=== PATIENT | male | born 1970 | race Caucasian/White ===

== ENCOUNTER 2017-05-14 12:34 | Emergency (ER) | payer OTHER ==
[2017-05-14 12:42] VITALS: RESP 16; TEMP 98.2
--- NOTE | 2017-05-14 12:57 | EDPHY ---
H & P Stated Complaint: Sent from dr's office for eval poss withdrawal vs neuro vs psych Time Seen by Provider: 05/14/17 12:55 HPI/ROS: CHIEF COMPLAINT: Change in mental status HISTORY OF PRESENT ILLNESS: The patient is a 47 y/o male with a history of rapid cycling bipolar disorder, back injuries, and a possible TIA in March sent by his doctor for a change in mental status. He has been taking hydroxyzine , three times daily and weening off of diazepam, for his bipolar disorder. He had been using Benedict for his back pain but recently his prescription ran out. As a result, he increased his diazepam over the past two days. He was seen by his PCP (Dr. German) on 05/05/17 for a follow up for an MRI in March for a TIA. Today, he returned to his PCP for a change in mental status. His reports he was at baseline this morning, and he went to see his psychiatrist who evidently was unable to see him. This resulted in him being upset. He then went to see his PCP. The PCP reports that he was walking into [place], confused, slow to speak, and has a questionable, intermittent left eyelid droop. His PCP is concerned about a possible stroke, TIA, withdrawal, or overmedication. The patient reports difficulty word finding, weakness in both arms, left worse than right, and confusion. He has an associated feeling that his lower body is separate from his upper body. He denies headache, or other associated symptoms. On further questioning the patient has increased his diazepam from 2.5 mg twice daily to 5 mg twice daily for his back pain as well as he took 10 mg last night. He reports he did this because he ran out of his hydrocodone. He states that his back has been unusually painful over the last several days related to several long plane trips which he needed to take. He also reports that he has been upset regarding of his father recently. Patient and his deny fever, chills, chest pain, shortness of breath, palpitations, vomiting, diarrhea, urinary complaints, headache, lightheadedness. REVIEW OF SYSTEMS: Aside from elements discussed in the HPI, a comprehensive 10-point review of systems was reviewed and is negative. PAST MEDICAL HISTORY: Bipolar disorder, back injuries, TIA SOCIAL HISTORY: Lives in [place], , employed VITAL SIGNS Reviewed by me. GENERAL: Slow to answer questions, very difficult historian. HEENT: Atraumatic. Eyes: No icterus, no injection. Mouth: moist mucous membranes. No erythema or lesions. Neck: supple with no adenopathy. LUNGS: Clear to auscultation bilaterally, no wheezes, rhonchi or rales. CARDIAC: Regular rate and rhythm, no rubs, murmurs or gallops. ABDOMEN: Soft, nontender, nondistended, bowel sounds normal. BACK: No CVA tenderness. EXTREMITIES: No trauma. No edema. Range of motion is normal throughout. NEURO: Alert and oriented, grossly nonfocal. Diminished welfare worker strength bilaterally and diminished lower extremity strength bilaterally though query volitional effort. [id number] and normal although slow. SKIN: Warm and dry, no rash. PSYCHIATRIC: Normal mentation, no agitation. - Personal History Current Tetanus Diphtheria and Acellular Pertussis (TDAP): Yes - Medical/Surgical History Other PMH: Bipolar. chronic back pain. depression. myalgias. scarlet fever - Social History Smoking Status: Never smoked Constitutional: Initial Vital Signs Temperature (C) 36.8 C 05/14/17 12:35 Heart Rate 85 05/14/17 12:35 Respiratory Rate 16 05/14/17 12:35 Blood Pressure 128/87 H 05/14/17 12:35 O2 Sat (%) 97 05/14/17 12:35 O2 Delivery Mode Room Air Allergies/Adverse Reactions: No Known Allergies Allergy (Verified 05/14/17 12:34) Home Medications: Medication Instructions Recorded Diazepam [Valium 5 MG (*)] 5 mg PO 05/14/17 Escitalopram Oxalate [Lexapro] 10 mg PO 05/14/17 Hydrocodone/APAP 5/325 [Benedict 1 each PO 05/14/17 5/325 (*)] Hydrocodone/APAP 5/325 [Benedict 1 tab PO Q6H PRN #10 tab 05/14/17 5/325 (RX)] OXcarbazepine [Trileptal 300mg (*)] 300 mg PO 05/14/17 QUEtiapine FUMARATE [Seroquel 100 100 mg PO DAILY 05/14/17 mg (*)] hydrOXYzine HCL [hydrOXYzine HCL 25 mg PO 05/14/17 (RX)] lamoTRIgine [LamICTAL 100 MG (*)] 200 mg PO 05/14/17 Medical Decision Making - Diagnostics EKG Interpretation: 12-LEAD EKG: Please see the full report in [facility]. My interpretation: Sinus rhythm Imaging Results: Imaging Impressions Brain MRI 05/14/17 14:02 Impression: Normal MRI examination of the brain.. Results called to Dr. Litzy Magallon at 3:25 PM. ED Course/Re-evaluation: The patient presents with altered mental status after discontinuing Benedict and increasing diazepam. He saw his PCP today and was noted to be confused, walking into [place], and had a questionable droop of the left eyelid. He was directed here for evaluation for a TIA, stroke, withdrawal, or overmedication. On exam, he is slow to speak, confused when answering questions, and has bilateral welfare worker and lower body weakness, though I question his volitional effort. Plan for fluids, Toradol, brain MRI, CBC, basic metabolic panel, troponin, lipase. 3:27 PM- MRI is normal. Patient's laboratory evaluation is largely unremarkable. There is no evidence of electrolyte abnormalities or cardiac cause. On re-examination after patient's evaluation has been completed patient reports feeling improved. Indeed, his mentation seems to to have improved, he is answering questions much more appropriately and rapidly. His main complaint currently is of ongoing back pain. I discussed with the patient at length my concerns regarding his chronic opiate use for treatment of his back pain. I advised him that he will need follow up with Dr. German regarding ongoing medications within Benedict for back pain. I did provide him with a Benedict prescription for 10 tablets. We also discussed importance of ibuprofen as, topical medications including lidocaine patch, ice, and topical creams. Patient is comfortable being discharged with his . Differential Diagnosis: After the history was obtained and physical exam performed, the following differential for the patient's altered mental status was considered included but was not limited to hypoglycemia, electrolyte disturbances, intracranial hemorrhage, tumor, drug or alcohol intoxication, stroke, or TIA. - Data Points Laboratory Results: Laboratory Results 05/14/17 13:25 05/14/17 13:25 05/14/17 05/14/17 13:25 13:25 WBC 7.34 10^3/uL 10^3/uL (3.80-9.50) RBC 4.47 10^6/uL 10^6/uL (4.40-6.38) Hgb 13.3 g/dL L g/dL (13.7-17.5) Hct 38.8 % L % (40.0-51.0) MCV 86.8 fL fL (81.5-99.8) MCH 29.8 pg pg (27.9-34.1) MCHC 34.3 g/dL g/dL (32.4-36.7) RDW 13.1 % % (11.5-15.2) Plt Count 306 10^3/uL 10^3/uL (150-400) MPV 8.9 fL fL (8.7-11.7) Neut % (Auto) 76.7 % H % (39.3-74.2) Lymph % (Auto) 16.5 % % (15.0-45.0) [place] % (Auto) 5.7 % % (4.5-13.0) Eos % (Auto) 0.4 % L % (0.6-7.6) Baso % (Auto) 0.3 % % (0.3-1.7) Nucleat RBC Rel Count 0.0 % % (0.0-0.2) Absolute Neuts (auto) 5.63 10^3/uL 10^3/uL (1.70-6.50) Absolute Lymphs (auto) 1.21 10^3/uL 10^3/uL (1.00-3.00) Absolute Monos (auto) 0.42 10^3/uL 10^3/uL (0.30-0.80) Absolute Eos (auto) 0.03 10^3/uL 10^3/uL (0.03-0.40) Absolute Basos (auto) 0.02 10^3/uL 10^3/uL (0.02-0.10) Absolute Nucleated RBC 0.00 10^3/uL 10^3/uL (0-0.01) Immature Gran % 0.4 % % (0.0-1.1) Immature Gran # 0.03 10^3/uL 10^3/uL (0.00-0.10) Sodium 135 mEq/L mEq/L (135-145) Potassium 4.8 mEq/L mEq/L (3.5-5.2) Chloride 98 mEq/L mEq/L (97-110) Carbon Dioxide 26 mEq/l mEq/l (22-31) Anion Gap 11 mEq/L mEq/L (8-16) BUN 17 mg/dL mg/dL (7-23) Creatinine 0.8 mg/dL mg/dL (0.7-1.3) Estimated GFR > 60 Glucose 83 mg/dL mg/dL (70-100) Calcium 9.2 mg/dL mg/dL (8.5-10.4) Total Bilirubin 0.3 mg/dL mg/dL (0.1-1.4) Conjugated Bilirubin 0.3 mg/dL mg/dL (0.0-0.5) Unconjugated Bilirubin 0.0 mg/dL mg/dL (0.0-1.1) AST 32 IU/L IU/L (17-59) ALT 39 IU/L IU/L (21-72) Alkaline Phosphatase 77 IU/L IU/L (38-126) Creatine Kinase 152 IU/L IU/L (0-224) Troponin I < 0.012 ng/mL ng/mL (0.000-0.034) Total Protein 7.4 g/dL g/dL (6.3-8.2) Albumin 4.7 g/dL g/dL (3.5-5.0) Lipase 115 IU/L IU/L (23-300) Medications Given: Discontinued Medications Sodium Chloride (Ns) 1,000 mls @ 0 mls/hr IV ONCE ONE; Wide Open PRN Reason: Protocol Stop: 05/14/17 15:40 Last Admin: 05/14/17 15:44 Dose: 1,000 mls Ketorolac Tromethamine (Toradol) 30 mg IVP EDNOW ONE Stop: 05/14/17 15:40 Last Admin: 05/14/17 15:44 Dose: 30 mg Departure - Departure Disposition: Home, Routine, Self-Care Clinical Impression: Over-sedated Altered mental status, unspecified Qualifiers: Altered mental status type: transient alteration of awareness Qualified Code(s) : R40.4 - Transient alteration of awareness Back pain Qualifiers: Back pain location: low back pain Chronicity: chronic Back pain laterality: left Sciatica presence: without sciatica Qualified Code(s): M54.5 - Low back pain; G89.29 - Other chronic pain; G89.29 - Other chronic pain Condition: Good Instructions: Diazepam (By mouth), Chronic Back Pain (ED), Lower Back Exercises (ED) Additional Instructions: I believe the majority of your confusion has been the result of over medication with Valium (diazepam.) Please stay well hydrated, take your medications only as directed, and follow up with Dr. German. For your back pain, you may take hydrocodone only as a very last treatment for back pain. You may take Valium 2.5 mg 2 times a day for muscle spasm. Do not exceed this dose. Consider using an ice pack, lidocaine patch, or other topical medications for your back pain. I encourage you to seek alternative therapies other than hydrocodone for your back pain. Referrals: Magda German MD [Primary Care Provider] - As per Instructions Prescriptions: Hydrocodone/APAP 5/325 [Benedict 5/325 (RX)] 1 tab PO Q6H PRN #10 tab PRN Reason: Pain Report Scribed for: Litzy Magallon Report Scribed by: Kelley Medellin Date of Report: 05/14/17 Time of Report: 15:37 Physician Review and Approval Statement: 05/14/17 15:37 Portions of this note were transcribed by a medical malpractice paralegal. I, Dr Litzy Magallon , personally performed a history, physical exam, medical decision making, and confirmed the accuracy of the information in the transcribed note.
--- NOTE | 2017-05-14 13:32 | CPEKG ---
Heart Rate: 75 RR Interval: 800 P-R Interval: 168 QRSD Interval: 102 QT Interval: 384 QTC Interval: 429 P [place]: 67 QRS [place]: 77 T Wave [place]: 40 EKG Severity - BORDERLINE ECG - EKG Impression: SINUS RHYTHM EKG Impression: PROBABLE LEFT ATRIAL ABNORMALITY Electronically Signed By: Randall Red 19-May-2017 14:51:34
[2017-05-14 14:49] LABS: PLATELET COUNT 306 10^3/uL (150-400)
[2017-05-14] MEDS ORDERED: GADOBUTROL 10 ML VIAL IVP ONE (14:52)
[2017-05-14 15:02] LABS: CREATINE KINASE 152 IU/L (0-224)
[2017-05-14 15:31] VITALS: O2SAT 96
[2017-05-14] MEDS ORDERED: NS 1,000 ML IV ONE (15:39)
[2017-05-14] MEDS ORDERED: KETOROLAC 30 MG/1 ML SDV IVP ONE (15:39)
[2017-05-14 16:30] VITALS: BP 124/88; PULSE 78
== END 2017-05-14 16:30 | disposition home or self-care (01) ==
DX: R40.4 Transient alteration of awareness (principal); M54.5 Low back pain; G89.29 Other chronic pain; E86.9 Volume depletion, unspecified; T42.4X5A Adverse effect of benzodiazepines, initial encounter
CPT/HCPCS: 96374; A9585; J1885

== ENCOUNTER → 2017-06-26 | Outpatient (CLI) | payer OTHER | LOC: FIMAGING 15:45 | PROVIDERS: ATTEND Family Medicine | DX: Z12.2 Encounter for screening for malignant neoplasm of respiratory organs (principal); Z77.090 Contact with and (suspected) exposure to asbestos; Z80.1 Family history of malignant neoplasm of trachea, bronchus and lung ==

== ENCOUNTER 2017-07-01 11:48 | Inpatient (IN) | payer OTHER ==
[2017-07-01] MEDS ORDERED: AZITHROMYCIN IV 500 MG in D5W 250 ML IV SCH (12:00)
[2017-07-01] MEDS ORDERED: NS 2,300 ML IV ONE (12:09)
--- NOTE | 2017-07-01 12:13 | EDPHY ---
H & P Time Seen by Provider: 07/01/17 11:50 HPI/ROS: CHIEF COMPLAINT: Pneumonia HISTORY OF PRESENT ILLNESS: Patient is a 47-year-old man who is sent from his primary Dr. Magda German for right lower and right middle lobe pneumonia seen on CT scan. He is also hypotensive and tachycardic in her office as well as hypoxic at 87% on room air. He has a long history of working around asbestos and his father last year from asbestosis. He had scheduled a screening CT scan of his lungs yesterday but began feeling sick just prior to the scan. When Dr. German received the results she recommended he come to the ER but he refused until he saw her today. He does complain of blood-tinged sputum the and therefore was placed on TB precautions by his primary. REVIEW OF SYSTEMS: Constitutional: denies: chills, fever, recent illness, recent injury EENTM: denies: blurred vision, double vision, nose congestion Respiratory: See HPI Cardiac: denies: chest pain, irregular heart rate, lightheadedness, palpitations Gastrointestinal/Abdominal: denies: abdominal pain, diarrhea, nausea, vomiting, blood streaked stools Genitourinary: denies: dysuria, frequency, hematuria, pain Musculoskeletal: denies: joint pain, muscle pain Skin: denies: lesions, rash, jaundice, bruising Neurological: denies: headache, numbness, paresthesia, tingling, dizziness, weakness Hematologic/Lymphatic: denies: blood clots, easy bleeding, easy bruising Immunologic/allergic: denies: HIV/AIDS, transplant EXAM: GENERAL: Well-appearing, well-nourished and in no acute distress. HEAD: Atraumatic, normocephalic. EYES: Pupils equal round and reactive to light, extraocular movements intact, sclera anicteric, conjunctiva are normal. ENT: TMs normal, nares patent, oropharynx clear without exudates. Moist mucous membranes. NECK: Normal range of motion, supple without lymphadenopathy or JVD. LUNGS: Bilateral rhonchi right greater than left HEART: Regular rate and rhythm without murmurs, rubs or gallops. ABDOMEN: Soft, nontender, normoactive bowel sounds. No guarding, no rebound. No masses appreciated. BACK: No CVA tenderness, no spinal tenderness, step-offs or deformities EXTREMITIES: Normal range of motion, no pitting or edema. No clubbing or cyanosis. NEUROLOGICAL: Cranial nerves II through XII grossly intact. Normal speech, normal gait. 5/5 strength, normal movement in all extremities, normal sensation PSYCH: Normal mood, normal affect. SKIN: Warm, dry, normal turgor, no visible rashes or lesions. Source: Patient, RN/MD, EMS Exam Limitations: No limitations - Medical/Surgical History Hx Asthma: No Hx Chronic Respiratory Disease: No Hx Diabetes: No Hx Cardiac Disease: No Hx Renal Disease: No Hx Cirrhosis: No Hx Alcoholism: No Other PMH: Bipolar. chronic back pain. depression. myalgias. scarlet fever - Family History Significant Family History: No pertinent family hx - Social History Smoking Status: Never smoked Alcohol Use: Sober Drug Use: None Constitutional: Initial Vital Signs O2 Sat (%) 93 07/01/17 12:00 O2 Delivery Mode Nasal Cannula O2 (L/minute) 2 Allergies/Adverse Reactions: No Known Allergies Allergy (Verified 05/14/17 12:34) Home Medications: Medication Instructions Recorded Diazepam [Valium 5 MG (*)] 2.5 mg PO DAILY PRN 05/14/17 Escitalopram Oxalate [Lexapro] 10 mg PO DAILY 05/14/17 Hydrocodone/APAP 5/325 [Cardwell 1 - 2 each PO Q4-6PRN PRN 05/14/17 5/325 (*)] OXcarbazepine [Trileptal 300mg (*)] 600 mg PO HS 05/14/17 QUEtiapine FUMARATE [Seroquel 100 100 mg PO HS 05/14/17 mg (*)] hydrOXYzine HCL [hydrOXYzine HCL 25 mg PO TID PRN 05/14/17 (RX)] lamoTRIgine [LamICTAL 100 MG (*)] 200 mg PO DAILY 05/14/17 Lidocaine [Lidoderm] 1 each TP DAILY 07/01/17 traMADol [Ultram 50 mg (*)] 50 mg PO Q6HRS PRN 07/01/17 Medical Decision Making ED Course/Re-evaluation: 12:50 p.m. the patient is severe septic but not septic shock. He is receiving is bolus. I have started antibiotics. I will admit to the medical service. He is tolerating nasal cannula. 12:55 p.m. I spoke with Carmen who accepted for Dr. Gaviria. Differential Diagnosis: Partial list of the Differential diagnosis considered include but were not limited to; sepsis, pneumonia and although unlikely based on the history and physical exam, I also considered cancer, TB. Critical Care Time: Critical care time spent by me, Dr. Jose exclusive with this patient was 45 minutes, exclusive of the PA time exclusive of procedures. The organ system that was at risk was pulmonary and I gave IV fluids, antibiotics, diagnostics, consultation and admission to prevent worsening of the patient's condition - Data Points Laboratory Results: Laboratory Results 07/01/17 12:00 07/01/17 12:00 Medications Given: Hydrocodone Bitart/Acetaminophen (Cardwell 5/325) 1 - 2 tab PO Q4H PRN PRN Reason: Pain, Breakthrough Stop: 07/11/17 15:16 Last Admin: 07/01/17 18:07 Dose: 1 tab Sodium Chloride (Ns) 1,000 mls @ 125 mls/hr IV CONT GREGORIO Stop: 12/28/17 13:29 Last Admin: 07/02/17 06:50 Dose: 1,000 mls Lamotrigine (Lamictal) 200 mg PO DAILY GREGORIO Stop: 12/28/17 15:29 Last Admin: 07/01/17 18:01 Dose: Not Given Miscellaneous Information (Patch Removal) 1 ea TD DAILY21 GREGORIO Stop: 12/28/17 20:59 Last Admin: 07/01/17 21:16 Dose: 1 ea Miscellaneous Medication (Lidocaine [Lidoderm]) 1 each TP DAILY GREGORIO Stop: 12/28/17 18:14 Last Admin: 07/01/17 18:26 Dose: 1 patch Oxcarbazepine (Trileptal) 600 mg PO HS GREGORIO Stop: 12/28/17 20:59 Last Admin: 07/01/17 21:16 Dose: 600 mg Quetiapine Fumarate (Seroquel) 100 mg PO HS GREGORIO Stop: 12/28/17 20:59 Last Admin: 07/01/17 21:16 Dose: 100 mg Discontinued Medications Azithromycin 500 mg/ Dextrose 255 mls @ 255 mls/hr IV DAILY GREGORIO PRN Reason: Protocol Stop: 07/31/17 11:59 Last Admin: 07/01/17 14:07 Dose: 255 mls Ceftriaxone Sodium/Dextrose (Rocephin 1 Gm (Premix)) 50 mls @ 100 mls/hr IV DAILY GREGORIO PRN Reason: Protocol Stop: 07/31/17 11:59 Last Admin: 07/01/17 13:20 Dose: 50 mls Sodium Chloride (Ns) 2,300 mls @ 4,600 mls/hr 30 ml/kg infuse over 30 min ( 2300 ml) IV EDNOW ONE PRN Reason: Protocol Stop: 07/01/17 12:38 Last Admin: 07/01/17 12:35 Dose: 2,300 mls Ceftriaxone Sodium/Dextrose (Rocephin 1 Gm (Premix)) 50 mls @ 100 mls/hr IV EDNOW ONE PRN Reason: Protocol Stop: 07/01/17 16:58 Last Admin: 07/01/17 17:45 Dose: 50 mls Departure - Departure Disposition: [facility] Inpatient Acute Clinical Impression: Severe sepsis Right lower lobe pneumonia Qualifiers: Pneumonia type: due to unspecified organism Qualified Code(s): J18.1 - Lobar pneumonia, unspecified organism Condition: Critical
[2017-07-01 12:22] LABS: PLATELET COUNT 331 10^3/uL (150-400)
[2017-07-01 12:37] LABS: INR 1.79 (0.83-1.16); PROTIME(PATIENT) 20.9 SEC (12.0-15.0)
[2017-07-01] MEDS ORDERED: ONDANSETRON 4 MG/2 ML VIAL IVP PRN (13:23)
[2017-07-01] MEDS ORDERED: ALBUTEROL 3 ML DEYVIAL IH PRN (13:23)
[2017-07-01] MEDS ORDERED: ONDANSETRON DISINTEGRATING 4 MG TAB PO PRN (13:23)
[2017-07-01] MEDS ORDERED: NS 1,000 ML IV SCH (13:30)
--- NOTE | 2017-07-01 14:45 | PDGENHP ---
History and Physical - Chief Complaint cough, hemoptysis, SOB - History of Present Illness 47 yo male with h/o bipolar and chronic pain presents to ED at request of PCP after results of a screening CT showed possible pneumonia. He says about a week ago he started feeling poorly with weakness. He developed a productive cough, black/brown/alejandra colored sputum. This persisted through Thursday. Notes pain in chest associated with cough. He also endorses pleuritic chest pain and shortness of breath. He developed hemoptysis Thursday and has continued to have this for past several days. He endorses chills, night sweats. No fevers. He is unsure if he has lost weight. No recent travel out of the country. 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 He flew to [place] 5 times since February to care for his dying father. He is fearful that he also has asbestosis and lung cancer. In the ED, he met criteria for severe sepsis. He was given 30 cc/kg fluid bolus , blood cultures were drawn, and he was given IV Ceftriaxone and Azithromycin. He is admitted to the ICU for further management. History Information - Allergies/Home Medication List Allergies/Adverse Reactions: No Known Allergies Allergy (Verified 05/14/17 12:34) Home Medications: Diazepam [Valium 5 MG (*)] 2.5 mg PO DAILY PRN 05/14/17 [Last Taken Unknown] Escitalopram Oxalate [Lexapro] 10 mg PO DAILY 05/14/17 [Last Taken Unknown] Hydrocodone/APAP 5/325 [Armstrong 5/325 (*)] 1 - 2 each PO Q4-6PRN PRN 05/14/17 [ Last Taken Unknown] OXcarbazepine [Trileptal 300mg (*)] 600 mg PO HS 05/14/17 [Last Taken Unknown] QUEtiapine FUMARATE [Seroquel 100 mg (*)] 100 mg PO HS 05/14/17 [Last Taken Unknown] hydrOXYzine HCL [hydrOXYzine HCL (RX)] 25 mg PO TID PRN 05/14/17 [Last Taken Unknown] lamoTRIgine [LamICTAL 100 MG (*)] 200 mg PO DAILY 05/14/17 [Last Taken Unknown] traMADol [Ultram 50 mg (*)] 50 mg PO Q6HRS PRN 07/01/17 [Last Taken Unknown] I have personally reviewed and updated: family history, medical history, social history, surgical history - Past Medical History Additional medical history: bipolar. chronic pain - Surgical History Reports: no pertinent surgical hx - Family History Positive for: cancer Additional family history: dad recently of lung cancer, possible asbestosis - Social History Smoking Status: Never smoked Alcohol Use: Sober Drug Use: None Additional social history: . 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 Lifetime non-smoker. Review of Systems Review of Systems: ROS: 10pt was reviewed & negative except for what was stated in HPI & below Physical Exam Physical Exam: Temp Pulse Resp BP Pulse Ox 36.6 C 98 16 90/64 L 93 07/01/17 12:54 07/01/17 12:54 07/01/17 12:54 07/01/17 12:54 07/01/17 12:54 Constitutional: no apparent distress Eyes: PERRL Ears, Nose, Mouth, Throat: moist mucous membranes Cardiovascular: regular rate and rhythym, no murmur, rub, or gallop Respiratory: no respiratory distress, other (decreased air exchange on right with crackles, left side is clear) Gastrointestinal: normoactive bowel sounds, soft, non-tender abdomen Skin: warm Musculoskeletal: full muscle strength Neurologic: AAOx3 Psychiatric: interacting appropriately Lab Data & Imaging Review 07/01/17 12:00 07/01/17 12:00 WBC 20.37 10^3/uL (3.80-9.50) H 07/01/17 12:00 RBC 4.26 10^6/uL (4.40-6.38) L 07/01/17 12:00 Hgb 12.4 g/dL (13.7-17.5) L 07/01/17 12:00 Hct 35.7 % (40.0-51.0) L 07/01/17 12:00 MCV 83.8 fL (81.5-99.8) 07/01/17 12:00 MCH 29.1 pg (27.9-34.1) 07/01/17 12:00 MCHC 34.7 g/dL (32.4-36.7) 07/01/17 12:00 RDW 13.7 % (11.5-15.2) 07/01/17 12:00 Plt Count 331 10^3/uL (150-400) 07/01/17 12:00 MPV 8.8 fL (8.7-11.7) 07/01/17 12:00 Neut % (Auto) Not Reported 07/01/17 12:00 Lymph % (Auto) Not Reported 07/01/17 12:00 Fulton % (Auto) Not Reported 07/01/17 12:00 Eos % (Auto) Not Reported 07/01/17 12:00 Baso % (Auto) Not Reported 07/01/17 12:00 Nucleat RBC Rel Count Not Reported 07/01/17 12:00 Absolute Neuts (auto) Not Reported 07/01/17 12:00 Absolute Lymphs (auto) Not Reported 07/01/17 12:00 Absolute Monos (auto) Not Reported 07/01/17 12:00 Absolute Eos (auto) Not Reported 07/01/17 12:00 Absolute Basos (auto) Not Reported 07/01/17 12:00 Absolute Nucleated RBC Not Reported 07/01/17 12:00 Immature Gran % Not Reported 07/01/17 12:00 Seg Neutrophils % 65.3 % 07/01/17 12:00 Band Neutrophils % 29.7 % 07/01/17 12:00 Lymphocytes % 2.0 % 07/01/17 12:00 Monocytes % 1.0 % 07/01/17 12:00 Eosinophils % 1.0 % 07/01/17 12:00 Basophils % 0 % 07/01/17 12:00 Metamyelocytes % 1.0 % 07/01/17 12:00 Myelocytes % 0 % 07/01/17 12:00 Promyelocytes % 0 % 07/01/17 12:00 Blast Cells % 0 % 07/01/17 12:00 Immature Gran # Not Reported 07/01/17 12:00 Absolute Seg Neuts 13.30 10^/uL (1.70-6.50) H 07/01/17 12:00 Absolute Band Neuts 6.05 10^3/uL (0.00-0.70) H 07/01/17 12:00 Absolute Lymphocytes 0.41 10^3/uL (1.00-3.00) L 07/01/17 12:00 Absolute Monocytes 0.20 10^3/uL (0.30-0.80) L 07/01/17 12:00 Absolute Eosinophils 0.20 10^3/uL (0.03-0.40) 07/01/17 12:00 Absolute Basophils 0.00 10^3/uL (0.02-0.10) L 07/01/17 12:00 Absolute Metamyelocyte 0.20 10^3/mL (0.00-0.00) H 07/01/17 12:00 Absolute Myelocytes 0.00 10^3/mL (0.00-0.00) 07/01/17 12:00 Absolute Promyelocytes 0.00 10^3/uL (0.00-0.00) 07/01/17 12:00 Absolute Plasma Cells 0.00 10^3/uL (0.00-0.00) 07/01/17 12:00 Absolute Blast Cells 0.00 10^3/uL (0.00-0.00) 07/01/17 12:00 Plasma Cells % 0 % 07/01/17 12:00 Platelet Estimate ADEQUATE (ADEQ) 07/01/17 12:00 Echinocytes 1+ H 07/01/17 12:00 PT 20.9 SEC (12.0-15.0) H 07/01/17 12:00 INR 1.79 (0.83-1.16) H 07/01/17 12:00 APTT 39.1 SEC (23.0-38.0) H 07/01/17 12:00 VBG Lactic Acid 1.9 mmol/L (0.7-2.1) 07/01/17 12:40 Sodium 129 mEq/L (135-145) L 07/01/17 12:00 Potassium 4.0 mEq/L (3.5-5.2) 07/01/17 12:00 Chloride 87 mEq/L (97-110) L 07/01/17 12:00 Carbon Dioxide 25 mEq/l (22-31) 07/01/17 12:00 Anion Gap 17 mEq/L (8-16) H 07/01/17 12:00 BUN 16 mg/dL (7-23) 07/01/17 12:00 Creatinine 1.5 mg/dL (0.7-1.3) H 07/01/17 12:00 Estimated GFR 50 07/01/17 12:00 Glucose 102 mg/dL (70-100) H 07/01/17 12:00 Calcium 8.6 mg/dL (8.5-10.4) 07/01/17 12:00 Total Bilirubin 1.3 mg/dL (0.1-1.4) 07/01/17 12:00 Conjugated Bilirubin 0.9 mg/dL (0.0-0.5) H 07/01/17 12:00 Unconjugated Bilirubin 0.4 mg/dL (0.0-1.1) 07/01/17 12:00 AST 79 IU/L (17-59) H 07/01/17 12:00 ALT 88 IU/L (21-72) H 07/01/17 12:00 Alkaline Phosphatase 132 IU/L (38-126) H 07/01/17 12:00 Total Protein 6.5 g/dL (6.3-8.2) 07/01/17 12:00 Albumin 3.5 g/dL (3.5-5.0) 07/01/17 12:00 Procalcitonin 11.63 ng/mL (0.02-0.10) H 07/01/17 12:00 Visualized and Interpreted Chest x-ray results: Yes Chest X-Ray results: infiltrate Assessment & Plan Assessment: Severe sepsis secondary to RLL PNA - Presents with leukocytosis, tachycardia, hypoxemia, elevated creatinine and elevated LFT's. Requiring 6 LPM. PCT 11.6. Lactate normal. -CT chest now for better evaluation, ?post-obstructive process -BCx's pending, send sputum culture -cont Ceftriaxone/Azithromycin -send legionella, pneumococcal Ags -prn nebs, O2, RT support -discussed with ID, no TB risk factors, d/c precautions -he needs f/u CT in 3 months to ensure resolution -may require intubation if respiratory status worsens AHRF - 2/2 PNA. Titrated O2 up to 6 LPM from 2 LPM in ED. CTA neg for PE, shows dense, significantly worse PNA compared to 06/26 study. -management as above KENNEDI - likely pre-renal in setting of sepsis / hypoperfusion -IVF's, follow Hyponatremia - suspect hypovolemic, cont NS and follow Elevated LFT's - likely hypoperfusion in setting of sepsis, could be related to RLL process. -trend LFT's Bipolar disorder - mood stable, cont home meds Chronic pain - cont home pain meds DVT PPLX - defer pharm with active hemoptysis, SCD's for now Full code Dispo - inpt, ICU status, anticipate >48 hrs hospitalization for ongoing management of severe sepsis, PNA and hypoxemia
[2017-07-01] MEDS ORDERED: IOPAMIDOL (ISOVUE 370) 100 ML BTL IV ONE (15:02)
[2017-07-01] MEDS ORDERED: hydrOXYzine HCL 25 MG TAB PO PRN (15:17)
[2017-07-01] MEDS ORDERED: traMADol 50 MG TAB PO PRN (15:17)
--- NOTE | 2017-07-01 16:10 | PDMN ---
Medical Necessity Medical necessity: [facility] M160 sepsis and other febrile illness, A-3 days, leukocytosis, hypoxemia, tachycardia, hemoptysis, elevated Cr. elevated LFT's, secondary to RLL PNA anticipate > 2 midnights ongoing med nec care
[2017-07-01] MEDS ORDERED: ALTEPLASE 2 MG VIAL IVP PRN (16:29)
[2017-07-01 16:43] LABS: HIV TYPE 1 AND 2 NEGATIVE (NEGATIVE)
[2017-07-01] MEDS: HYDROCODONE/APAP 5/325 TAB PO PRN ×2 (17:28→18:07)
--- NOTE | 2017-07-01 17:35 | CPEKG ---
Heart Rate: 121 RR Interval: 496 P-R Interval: 148 QRSD Interval: 94 QT Interval: 304 QTC Interval: 432 P Thorp: 51 QRS Thorp: 80 T Wave Thorp: 6 EKG Severity - OTHERWISE NORMAL ECG - EKG Impression: SINUS TACHYCARDIA Electronically Signed By: Usman Downey 02-Jul-2017 12:44:21
--- NOTE | 2017-07-01 17:44 | GCON ---
[f rep st] CONSULTATION DATE OF CONSULTATION: 07/01/2017 REQUESTING PHYSICIAN: Dr. Rosa Gaviria. REASON FOR CONSULTATION: Sepsis with community-acquired pneumonia. HISTORY OF PRESENT ILLNESS: Patient is a 47-year-old male with a past medical history of bipolar disorder, whom I am asked to see in consultation for sepsis secondary to community-acquired pneumonia. The patient recently had undergone a screening CT scan to assess for lung cancer, as his father had recently from asbestos-associated lung cancer, which was performed on 06/26/2017. CT showed numerous hazy foci of increased density in the right lower lobe and right middle lobe. At the time of the patient's CT scan, he notes that he felt completely well. On Thursday, the patient noted that he was feeling so-so in the a.m. and by the evening, started to feel significantly ill. This was characterized by development of cough with hemoptysis and right-sided pleuritic chest pain with associated shortness of breath. He describes having shivering chills and significant night sweats. He did not document any fever. These symptoms were slowly more progressive over the next several days. He became progressively dyspneic and notes for the last 24 to 36 hours that he has had difficulty speaking a full sentence. His right-sided pleuritic chest pain has been progressive, and he can no longer sleep on his right side. He has continued to have chills and night sweats, as well as hemoptysis. He has had associated nausea without vomiting or diarrhea. The patient traveled recently several times to [place] prior to his father's . He has a 3-year- old in daycare. No other recent travel. No known TB exposures. The patient saw his primary care provider earlier today and was subsequently routed to the emergency department based on clinical findings. In the emergency department, he was noted to be hypotensive with blood pressures in the 80-90 systolic range. White blood cell count was elevated at 20,000 with 30% bands. The patient had hyponatremia with a creatinine of 1.5. Venous lactate was 1.9 and INR was 1.8. The patient had a chest x-ray performed which showed evidence of right lower lobe infiltrate. He was started on ceftriaxone and azithromycin, as well as fluid resuscitation based on criteria for severe sepsis. The patient does not note any unusual animal exposures. He lives in [facility]. No recent contact with my mice or mouse droppings. No contact with any animal carcasses. Given the above findings, I am now asked to assist in his ongoing management. 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 PAST SURGICAL HISTORY: Unremarkable. CURRENT MEDICATIONS: 1. Ceftriaxone 1 g IV daily. 2. Azithromycin 500 mg p.o. daily. 3. Albuterol nebulizers as needed. 4. Valium 2.5 mg as needed. 5. Lexapro 10 mg p.o. daily. 6. Hydroxyzine 25 mg orally 3 times per day, as needed for anxiety. 7. Lamictal 200 mg p.o. daily. 8. Trileptal 600 mg p.o. at bedtime. 9. Seroquel 100 mg p.o. at bedtime. ALLERGIES: The patient developed fever with Abilify. SOCIAL HISTORY: Patient does not smoke or drink alcohol. Occasional marijuana use. 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 He has a 3-year-old in daycare. Traveled to [place], as outlined above. FAMILY HISTORY: Father recently of lung cancer associated with asbestos. REVIEW OF SYSTEMS: Outside that noted in the HPI, the remainder of 10-system review is unremarkable. PHYSICAL EXAMINATION: VITAL SIGNS: Temperature 36.6, heart rate 94, respiratory rate 18, oxygen saturation 93% on 4 L, blood pressure 107/67. GENERAL: Patient is dyspneic appearing, but nontoxic. He is well nourished and well developed. HEENT: There is no scleral icterus, conjunctival injection , or conjunctival petechiae. Oropharynx shows dry mucous membranes with no thrush. There is no nasal discharge. There is no tenderness over the sinuses. NECK: Supple without palpable lymphadenopathy or thyromegaly. CHEST: There are coarse expiratory wheezes throughout. These are more prominent on the right versus the left. The respiratory effort is increased. The patient has difficulty speaking a full sentence without needing to stop for breath. CARDIOVASCULAR: Regular rate and rhythm rate and rhythm without murmurs, gallops, rubs. ABDOMEN: Soft, nontender, nondistended. There is no palpable organomegaly. Bowel sounds are present. MUSCULOSKELETAL: No cyanosis, clubbing, or edema. SKIN: No rashes are noted. No stigmata of endocarditis. Warm and dry to touch. NEUROLOGIC: Patient is alert and interacts appropriately with the examiner. Cranial nerves 2-12 are grossly intact. Sensation is grossly intact. Muscle tone and bulk are normal. LYMPHATICS: No cervical or supraclavicular nodes. LABORATORY DATA: White blood cell count 20.4, hematocrit 35.7, platelets 331, neutrophils 65%, bands 30%. Serum creatinine is 1.5, bicarbonate 25, sodium 129 , bilirubin 1.3, AST 79, ALT 88, alkaline phosphatase 132, albumin 3.5, procalcitonin 11.6. Urinalysis is negative. Venous lactate is 1.9. INR is 1.8. HIV antibody is negative. Urine legionella and Streptococcus pneumoniae antigens are pending. Blood cultures x2 are pending. Sputum culture is pending. A respiratory pathogen panel by PCR is pending. Chest x-ray shows right lower lobe pneumonia. Chest CT performed today shows dense consolidation in the right lower lobe and right middle lobe with some areas of ground-glass opacity in the left lower lobe; small right-sided pleural effusion is present. IMPRESSION: 1. Severe sepsis due to community-acquired pneumonia: Most likely, this will be due to Streptococcus pneumoniae based on clinical presentation and radiographic findings. Other etiologies of community-acquired pneumonia would also be in the differential diagnosis. Atypical pathogens including legionella are also of consideration, although I suspect will be less likely. The patient does not have defined risk factors for pseudomonas. No clinical exposures to suggest zoonotic etiology. Given the clinical presentation and rapid progression radiographically, suspect patient may show clinical worsening prior to improvement with brisk inflammatory response being present. The patient does not have any risk factors for tuberculosis and time course would be very atypical for tuberculosis, given rapid change in radiographic findings over several days. 2. Elevated liver enzymes: Likely associated with sepsis. 3. Hyponatremia. 4. Acute renal insufficiency. RECOMMENDATIONS: 1. Ceftriaxone 2 g IV daily (2nd 1 g dose will be provided today). 2. Azithromycin 500 mg IV daily (favor IV route, given severity of illness). We will obtain EKG to assess baseline QT interval, given that azithromycin has interactions with both his Lexapro and Seroquel with potential for QT prolongation. 3. Agree with admission to intensive care unit for careful monitoring and fluid resuscitation. 4. Follow up blood and sputum cultures, as well as respiratory pathogen panel by PCR as available. 5. Follow clinical response and course to above measures. 6. Clinical findings and plan were reviewed with Dr. Gaviria today. Thank you for this consultation. We will continue to follow the patient with you. /[id number]/MODL MTDD
[2017-07-01] MEDS ORDERED: LIDOCAINE 4%/MENTHOL 1% PATCH TD SCH (17:45)
[2017-07-01] MEDS: lamoTRIgine 100 MG TAB PO SCH ×2 (17:58→18:01)
[2017-07-01] MEDS: LIDOCAINE 5% TP SCH (18:26)
[2017-07-01] MEDS ORDERED: OXcarbazepine 300 MG TAB PO SCH (21:00)
[2017-07-01] MEDS: QUEtiapine FUMARATE 100 MG TAB PO SCH (21:16)
[2017-07-01] MEDS: PATCH REMOVAL 1 EA PATCH TD SCH (21:16)
[2017-07-02 05:49] LABS: INR 2.06 (0.83-1.16); PROTIME(PATIENT) 23.3 SEC (12.0-15.0)
[2017-07-02 06:13] LABS: PLATELET COUNT 340 10^3/uL (150-400)
[2017-07-02] MEDS: lamoTRIgine 100 MG TAB PO SCH (07:51)
[2017-07-02] MEDS: LIDOCAINE 5% TP SCH (08:00)
[2017-07-02] MEDS: AZITHROMYCIN IV 500 MG in NS 250 ML IV SCH (08:08)
[2017-07-02] MEDS: cefTRIAXone 2 GM in STERILE WATER INJ 20 ML IV SCH (08:08)
[2017-07-02] MEDS ORDERED: ESCITALOPRAM OXALATE 10 MG TAB PO SCH (09:00)
[2017-07-02] MEDS ORDERED: AZITHROMYCIN 250 MG TAB PO SCH (09:00)
[2017-07-02] MEDS: HYDROCODONE/APAP 5/325 TAB PO PRN ×2 (11:00→20:05)
--- NOTE | 2017-07-02 11:09 | ASMTCASEMG ---
Living Arrangements What is your living Answers: With Spouse arrangement? Who do you live with? Type Of Residence What kind of residence do Answers: House you live in? Discharge Plan Comments Coordination Status Comments Notes: Patient is a 45yo male with a hx of Bipolar Disorder and chronic pain who came to [facility] ED at request of his PCP who did a CT scan showing possible pneumonia. Patient has had pain in his chest, shortness of breath, chills and night sweats. 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 Patient is worried he might also have asbestosis. Patient was admitted for severe sepsis and pneumonia. No therapies ordered at this time. D/C plan TBD. CM will follow. Date Signed: 07/02/2017 11:08 AM Electronically Signed By:Sara Fenton LCSW
--- NOTE | 2017-07-02 11:26 | PCMIDPN ---
Assessment/Plan: Assessment: Right lower and right middle lobe pneumonia. Patient needing significant oxygen supplementation to maintain saturation. Clinically he looks like he has improved. He is in better spirits. Denies any other new complaints. Plan: 1. Continue both ceftriaxone and azithromycin. 2. Continue to follow the sputum culture. G stain shows gram-positive cocci but nothing growing from culture yet. 3. Continue ICU support and O2 supplementation. 07/02/17 11:23 Subjective: Patient is resting in his hospital bed. Still requiring a high amount of oxygen by face mask to keep sats above 90. Continues to have some right-sided chest pain. No fevers or chills. Objective: Ceftriaxone # 2 Azithromycin # 2 Vital Signs Temp Pulse Resp BP Pulse Ox 36.7 C 107 H 24 H 121/68 H 98 07/02/17 08:00 07/02/17 10:00 07/02/17 10:00 07/02/17 10:00 07/02/17 10:00 Microbiology 07/01/17 15:00 - Final Sputum, Expectorated 07/01/17 15:20 Respiratory Panel (PCR) - Final Nasal, Sinus - Swab No Organism Detected Laboratory Results 07/02/17 05:20 07/02/17 05:20 07/01/17 07/02/17 07/03/17 05:59 05:59 05:59 Intake Total 4073 Output Total 2740 Balance 1333 - Physical Exam General Appearance: WD/WN, alert, no apparent distress, non-toxic Respiratory: crackles, No lungs clear (Decreased breath sounds in the bases bilaterally right greater than left), No normal breath sounds Cardiac/Chest: regular rate, rhythm, tachycardia Skin: normal color, warm/dry, No rash Neuro/Psych: alert, normal mood/affect, oriented x 3 ICD10 Worksheet Patient Problems: Problems Problem Status Onset Right lower lobe pneumonia Acute Severe sepsis Acute
--- NOTE | 2017-07-02 12:04 | GCON ---
[f rep st] CONSULTATION STRETCH BOX TENDER CONSULTATION REASON FOR ADMISSION: Multilobar pneumonia. HISTORY: The patient is a very pleasant 47-year-old white male with a past medical history of bipola r disorder and chronic pain. He presented to the emergency room after feeling unwell. CT scan at th e time revealed possible pneumonia. His father of lung cancer recently after being expos ed to asbestos for many years. 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 He admits to a cough productive of [id number] sputum. He admits to chest pain, especially with deep inspi ration or cough. He has had low-grade fevers as well as some night sweats. No nausea. No vomiting. No diarrhea. He was seen in the emergency room, placed on antibiotics, and admitted to the intensi ve care unit, with the diagnosis of multilobar pneumonia and severe sepsis. Currently, he is resting comfortably and feels somewhat better. REVIEW OF SYSTEMS: A 10-point review of systems was performed and was negative except for what was l isted in the HPI. ALLERGIES: No known allergies to medications. SOCIAL HISTORY: No history of tobacco use. Infrequent alcohol use. He is . 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 He again has history of asbestos exposure. PAST SURGICAL HISTORY: None. FAMILY HISTORY: Significant only for lung cancer and asbestosis. PHYSICAL EXAMINATION: VITAL SIGNS: Blood pressure 121/68, pulse 107, respirations 24, temperature 3 6.7, and oxygen saturation 98% on 13 L OxyMask. GENERAL: A well-developed, well-nourished, 47-year- old, white male who is resting comfortably but with mild dyspnea. HEENT: Eyes PERRLA and EOMI. Thr oat shows no erythema or tonsillar hypertrophy. NECK: Supple. cervical adenopathy. HEA RT: Regular rate and rhythm without murmurs, rubs, gallops. LUNGS: Diminished breath sounds and bi basilar crackles, right greater than left. ABDOMEN: Soft, nontender. Bowel sounds are present in a ll 4 quadrants. EXTREMITIES: No clubbing, cyanosis, or edema. LABORATORIES: White count 22,000, hemoglobin 12, hematocrit 35, platelet count is 342. INR is 2.06. Sodium 136, potassium 5.2, chloride 98, CO2 23, BUN 13, creatinine 0.9, glucose 77. Urinalysis is negative. HIV is negative. Urine Legionella and urine strep pneumo antigens are pending. Respirato ry viral culture reveals no organisms detected. CT angiogram of the chest shows bilateral lower lobe pneumonia, right markedly greater than the left. There is a very small right-sided pleural effusion. No evidence of PE. IMPRESSION: 1. Multi lobar pneumonia: This is very dense on the right and minimal on the left. There is a smal l pleural effusion. Query this might be pneumococcal pneumonia. 2. Acute respiratory failure secondary to pneumonia. 3. Pleuritic chest pain. 4. Bipolar disorder. RECOMMENDATIONS: 1. Agree with current antibiotic coverage. 2. DVT and PE prophylaxis. 3. Stress ulcer prophylaxis. 4. Agree with high FiO2; will wean as tolerated. 5. Continue the majority of his home medications. 6. Adequate pain control. 7. Await for strep pneumo urine antigen. /[id number]/MODL
--- NOTE | 2017-07-02 14:54 | HOSPPROG ---
Hospitalist Progress Note Assessment/Plan: Severe sepsis secondary to RLL PNA - Presents with leukocytosis, tachycardia, hypoxemia, elevated creatinine and elevated LFT's. WBC's on the rise. O2 requirement 15 LPM --> 6 LPM today. PCT 11.6. Lactate normal. CT chest showed dramatic blossoming of PNA compared to 06/26 CT. Suspect pneumococcal dz. -BCx's and sputum Cx pending -cont Ceftriaxone/Azithromycin -legionella, pneumococcal Ags pending -cont prn nebs, O2, RT support -he needs f/u imaging in 3 months to ensure resolution AHRF - 2/2 above -wean O2 as able -management as above KENNEDI - resolved with IVF's Hyponatremia - resolved with NS Elevated LFT's - likely hypoperfusion in setting of sepsis, but LFT's cont to rise -check RUQ u/s Coagulopathy - INR elevated, unclear etiology, possibly from sepsis -u/s as above Bipolar disorder - mood stable, cont home meds Chronic pain - cont home pain meds DVT PPLX - INR elevated, defer pharm, SCD's for now Full code Dispo - cont inpt, ICU. Discussed with Dr. White and ICU care team on rounds. Subjective: Pt feels a little better. Still coughing, some SOB, denies CP. No fevers. Taking po well. Objective: Vital Signs Temp Pulse Resp BP Pulse Ox 37.2 C 89 20 93/63 L 98 07/02/17 14:00 07/02/17 14:00 07/02/17 14:00 07/02/17 14:00 07/02/17 14:00 Microbiology 07/01/17 15:00 - Final Sputum, Expectorated 07/01/17 15:20 Respiratory Panel (PCR) - Final Nasal, Sinus - Swab No Organism Detected Laboratory Results 07/02/17 05:20 07/02/17 05:20 07/01/17 07/02/17 07/03/17 05:59 05:59 05:59 Intake Total 4073 Output Total 2740 Balance 1333 PT 23.3 SEC (12.0-15.0) H 07/02/17 05:20 INR 2.06 (0.83-1.16) H 07/02/17 05:20 - Physical Exam Constitutional: no apparent distress Eyes: PERRL Ears, Nose, Mouth, Throat: moist mucous membranes Cardiovascular: regular rate and rhythym Respiratory: no respiratory distress, reduced air movement, inspiratory crackles Gastrointestinal: normoactive bowel sounds, soft, non-tender abdomen Skin: warm Musculoskeletal: full muscle strength Neurologic: AAOx3 Psychiatric: interacting appropriately ICD10 Worksheet Patient Problems: Problems Problem Status Onset Right lower lobe pneumonia Acute Severe sepsis Acute
[2017-07-02] MEDS: hydrOXYzine HCL 25 MG TAB PO SCH ×2 (15:08→23:04)
[2017-07-02] MEDS ORDERED: NS 1,000 ML IV ONE (19:39)
[2017-07-02] MEDS ORDERED: HYDROmorphONE/DILAUDID 2 MG/ML INJ IVP ONE (19:40)
[2017-07-02] MEDS: DIAZEPAM 5 MG TAB PO PRN (20:05)
[2017-07-02] MEDS ORDERED: OXcarbazepine 300 MG TAB PO SCH (21:00)
[2017-07-02] MEDS: QUEtiapine FUMARATE 100 MG TAB PO SCH (21:39)
[2017-07-02] MEDS: PATCH REMOVAL 1 EA PATCH TD SCH (21:41)
[2017-07-03 05:31] LABS: PLATELET COUNT 312 10^3/uL (150-400)
[2017-07-03] MEDS: HYDROCODONE/APAP 5/325 TAB PO PRN ×3 (05:44→16:04)
[2017-07-03] MEDS: DIAZEPAM 5 MG TAB PO PRN (05:44)
[2017-07-03] MEDS: AZITHROMYCIN IV 500 MG in NS 250 ML IV SCH (08:14)
[2017-07-03] MEDS: cefTRIAXone 2 GM in STERILE WATER INJ 20 ML IV SCH (08:14)
[2017-07-03] MEDS: ACETAMINOPHEN 325 MG TAB PO PRN (08:36)
[2017-07-03] MEDS: hydrOXYzine HCL 25 MG TAB PO SCH ×2 (08:37→16:04)
[2017-07-03] MEDS: ESCITALOPRAM OXALATE 10 MG TAB PO SCH (08:37)
[2017-07-03] MEDS: traMADol 50 MG TAB PO PRN ×2 (08:39→20:04)
--- NOTE | 2017-07-03 09:03 | PDINTPN ---
Flaker Operator Progress Note Assessment/Plan: Assessment/plan: * Multilobar pneumonia-clinically improved -antibiotics per Infectious Disease * Acute respiratory failure secondary to above-markedly improved -wean FiO2 as tolerated -aggressive pulmonary toilet * Anxiety * History of bipolar Subjective: Resting comfortably. Breathing easier, except with ambulation Objective: Vital Signs Temp Pulse Resp BP Pulse Ox 36.8 C 90 19 109/70 92 07/03/17 08:31 07/03/17 08:31 07/03/17 08:31 07/03/17 08:31 07/03/17 08:31 Microbiology 07/01/17 15:00 - Final Sputum, Expectorated Laboratory Results 07/03/17 04:40 07/03/17 04:40 07/02/17 07/03/17 07/04/17 05:59 05:59 05:59 Intake Total 4073 5434 Output Total 2740 4000 Balance 1333 1434 PT 23.3 SEC (12.0-15.0) H 07/02/17 05:20 INR 2.06 (0.83-1.16) H 07/02/17 05:20 - Time Spent With Patient Time Spent With Patient: 25 min of time spent with patient, over 1/2 involved with coordination of care or counseling Physical Exam - Physical Exam General Appearance: alert, no apparent distress EENT: PERRL/EOMI Neck: non-tender, full range of motion, supple, normal inspection Respiratory: respiratory distress, rhonchi (Scattered), No wheezing Cardiac/Chest: normal peripheral pulses, regular rate, rhythm, systolic murmur Abdomen: normal bowel sounds, non-tender, soft Male Genitalia: deferred Rectal: deferred Skin: normal color, warm/dry Extremities: normal range of motion, non-tender, normal inspection, normal capillary refill Neuro/Psych: no motor/sensory deficits, alert, normal mood/affect, oriented x 3 ICD10 Worksheet Patient Problems: Problems Problem Status Onset Right lower lobe pneumonia Acute Severe sepsis Acute
--- NOTE | 2017-07-03 09:14 | PCMIDPN ---
Assessment/Plan: # RLL PNA initially with severe sepsis, now improved with decreased O2 requirement and symptomatic improvement. Microbiologic data so far unrevealing but streptococcal antigen positive . WBC remains elevated but clinically improved. --continue ceftriaxone and azithromycin --due to severity of pneumonia, not candidate for short course treatment of CAP --change azithro to 500mg PO Daily tomorrow, although strongly suspect disease mediated by pneumococcus, will await a bit more microbiologic data --continue to monitor WBC, if continued elevation may have to re-evaluate for pleural effusion # Elevated LFTs likely related to sepsis/pna --continue to monitor --check hep serologies meds azithromycin 500mg IV daily #3 ceftriaxone 2gm IV daily #3 Microbiology 07/01/17 Respiratory Panel (PCR) Neg 07/01/17 Sputum, Expectorated - URF 07/01/17 Blood Cx (2) NGTD legionella An pending HIV neg Subjective: still with R side pleuritic CP coughing much less no diarrhea, no BM since admit Objective: Vital Signs Temp Pulse Resp BP Pulse Ox 36.8 C 90 19 109/70 92 07/03/17 08:31 07/03/17 08:31 07/03/17 08:31 07/03/17 08:31 07/03/17 08:31 Microbiology 07/01/17 15:00 - Final Sputum, Expectorated Laboratory Results 07/03/17 04:40 07/03/17 04:40 07/02/17 07/03/17 07/04/17 05:59 05:59 05:59 Intake Total 4073 5434 Output Total 2740 4000 Balance 1333 1434 - Physical Exam General Appearance: alert, no apparent distress EENT: No thrush Respiratory: wheezing (scattered), coarse breath sounds, No accessory muscle use Neck: supple Cardiac/Chest: regular rate, rhythm (borderline tachy) Extremities: No pedal edema Abdomen: normal bowel sounds, non-tender, soft Skin: No rash Neuro/Psych: alert, normal mood/affect, oriented x 3 - Time Spent With Patient Time Spent with Patient: greater than 35 minutes (care coordinated with Dr White) Time Spent with Patient: Greater than 35 minutes spent on this patients care, greater than 50% of time spent counseling, educating, and coordinating care regarding the above mentioned plan. ICD10 Worksheet Patient Problems: Problems Problem Status Onset Right lower lobe pneumonia Acute Severe sepsis Acute
[2017-07-03] MEDS: lamoTRIgine 100 MG TAB PO SCH ×2 (10:13→10:45)
[2017-07-03] MEDS: lamoTRIgine 25 MG TAB PO SCH (10:13)
--- NOTE | 2017-07-03 11:27 | HOSPPROG ---
Hospitalist Progress Note Assessment/Plan: Severe sepsis secondary to RLL PNA - Presents with leukocytosis, tachycardia, hypoxemia, elevated creatinine and elevated LFT's. WBC's remain elevated. O2 requirement 15 LPM --> 4 LPM today. PCT 11.6. Lactate normal. CT chest showed dramatic blossoming of PNA compared to 06/26 CT. -pneumococcal Ag positive -BCx's and sputum Cx ngtd -cont Ceftriaxone/Azithromycin -cont prn nebs, O2, RT support -needs f/u imaging in 4-6 weeks to ensure resolution AHRF - 2/2 above -wean O2 as able -management as above KENNEDI - resolved with IVF's Hyponatremia - resolved with NS Elevated LFT's - likely hypoperfusion in setting of sepsis, U/S reassuring -hepatitis serologies pending -cont to trend Coagulopathy - INR elevated, possibly from sepsis -follow Bipolar disorder - mood stable, cont home meds Chronic pain - cont home pain meds DVT PPLX - INR elevated, defer pharm, SCD's for now Full code Dispo - cont inpt, med surg status. ADD uncertain Subjective: Pt feels better, but still quite fatigued, coughing. No fevers overnight. Taking po. Denies CP or SOB. Objective: Vital Signs Temp Pulse Resp BP Pulse Ox 36.8 C 90 19 109/70 92 07/03/17 08:31 07/03/17 08:31 07/03/17 08:31 07/03/17 08:31 07/03/17 08:31 Microbiology 07/01/17 15:00 - Final Sputum, Expectorated Laboratory Results 07/03/17 04:40 07/03/17 04:40 07/02/17 07/03/17 07/04/17 05:59 05:59 05:59 Intake Total 4073 5434 Output Total 2740 4000 600 Balance 1333 1434 -600 PT 23.3 SEC (12.0-15.0) H 07/02/17 05:20 INR 2.06 (0.83-1.16) H 07/02/17 05:20 - Physical Exam Constitutional: no apparent distress Eyes: PERRL Ears, Nose, Mouth, Throat: moist mucous membranes Cardiovascular: regular rate and rhythym Respiratory: no respiratory distress, inspiratory crackles Gastrointestinal: normoactive bowel sounds, soft, non-tender abdomen Skin: warm Musculoskeletal: full muscle strength Neurologic: AAOx3 Psychiatric: interacting appropriately ICD10 Worksheet Patient Problems: Problems Problem Status Onset Right lower lobe pneumonia Acute Severe sepsis Acute
[2017-07-03 11:52] LABS: HEPATITIS B SURFACE ANTIGEN NEGATIVE (NEGATIVE)
[2017-07-03 11:57] LABS: HEPATITIS A ANTIBODY IGM (BCH) NEGATIVE (NEGATIVE)
[2017-07-03 12:10] LABS: HEPATITIS C ANTIBODY TOTAL NEGATIVE (NEGATIVE)
[2017-07-03] MEDS: LIDOCAINE 5% TP SCH ×2 (15:00→20:02)
[2017-07-03] MEDS: OXcarbazepine 300 MG TAB PO SCH (20:03)
[2017-07-03] MEDS: QUEtiapine FUMARATE 100 MG TAB PO SCH (20:04)
[2017-07-04] MEDS: hydrOXYzine HCL 25 MG TAB PO SCH ×4 (01:26→20:59)
[2017-07-04] MEDS: HYDROCODONE/APAP 5/325 TAB PO PRN (01:32)
[2017-07-04] MEDS ORDERED: PIPERACILLIN/TAZO 3.375 GM/DEX 50 ML IV SCH (04:30)
--- NOTE | 2017-07-04 04:39 | HOSPPROG ---
Hospitalist Progress Note Assessment/Plan: XC: Called by RN to notify patient is mildly altered, hypoxic, and tachycardic. Upon my evaluation patient is appropriate but sedated and requiring 15 L/min via facemask to maintain sats > 90%. CXR (personally interpreted) shows persistent R and worsening L sided pneumonia. I doubt PE as evaluation for this was negative on admission. Most likely this represents worsening pneumonia with possible overlying aspiration noting patient received a lot of sedating medication this evening and became somewhat altered. Effusion(infected?) and edema are additional considerations but I am hesitant to diurese noting patient is already tachycardic and appears septic. His symptoms were unchanged by albuterol neb. Plan is to broaden antibiotics (Vanc, Zosyn) and transfer to SDU for possible BIPAP. I personally spent 30 minutes of critical care time evaluating patient, interpreting data, and coordinating care. Objective: Vital Signs Temp Pulse Resp BP Pulse Ox 36.9 C 108 H 24 H 131/81 H 91 L 07/03/17 23:28 07/04/17 03:34 07/04/17 03:34 07/03/17 23:28 07/04/17 03:34 Microbiology 07/01/17 15:00 - Final Sputum, Expectorated Sputum Culture - Final Laboratory Results 07/03/17 04:40 07/03/17 04:40 07/02/17 07/03/17 07/04/17 05:59 05:59 05:59 Intake Total 4073 5434 1793 Output Total 2740 4000 1100 Balance 1333 1434 693 PT 23.3 SEC (12.0-15.0) H 07/02/17 05:20 INR 2.06 (0.83-1.16) H 07/02/17 05:20 - Physical Exam Constitutional: uncomfortable, other (Sedated, responding to commands) Eyes: PERRL, EOMI Ears, Nose, Mouth, Throat: moist mucous membranes, no oral mucosal ulcers Cardiovascular: no murmur, rub, or gallop, tachycardia Respiratory: reduced air movement (Bases), inspiratory crackles (Bibasilar), respiratory distress, rhonchi (Bibasilar), No expiratory wheeze Gastrointestinal: normoactive bowel sounds, soft, non-tender abdomen Skin: warm, normal color Musculoskeletal: full muscle strength, no muscle tenderness Neurologic: AAOx3, CN II-XII Intact (3) Psychiatric: interacting appropriately, other (Mildly sedated) ICD10 Worksheet Patient Problems: Problems Problem Status Onset Right lower lobe pneumonia Acute Severe sepsis Acute
[2017-07-04 04:53] LABS: PLATELET COUNT 332 10^3/uL (150-400)
[2017-07-04 04:59] LABS: INR 1.56 (0.83-1.16); PROTIME(PATIENT) 18.8 SEC (12.0-15.0)
[2017-07-04] MEDS ORDERED: VANCOMYCIN 1.25 GM in NS 250 ML IV SCH (05:00)
--- NOTE | 2017-07-04 08:51 | PDINTPN ---
Studio Artist Progress Note Assessment/Plan: Assessment/plan: * Multilobar pneumonia-clinically improved. He was transferred to medical surgical floor but transfer back secondary to hypoxemia. -antibiotics per Infectious Disease * Acute respiratory failure secondary to above-markedly improved. He was transferred to medical surgical floor but transfer back secondary to hypoxemia. Chest x-ray suggesting right-sided pleural effusion -wean FiO2 as tolerated -aggressive pulmonary toilet -will check lateral decubitus checks x-ray * Anxiety * History of bipolar Subjective: Resting comfortably. Breathing easily on supplemental oxygen. Objective: Vital Signs Temp Pulse Resp BP Pulse Ox 37 C 92 20 131/76 H 94 07/04/17 08:00 07/04/17 08:00 07/04/17 08:00 07/04/17 08:00 07/04/17 08:00 Microbiology 07/01/17 15:00 - Final Sputum, Expectorated Sputum Culture - Final Laboratory Results 07/04/17 04:15 07/04/17 04:15 07/03/17 07/04/17 07/05/17 05:59 05:59 05:59 Intake Total 5434 1793 Output Total 4000 1100 Balance 1434 693 PT 18.8 SEC (12.0-15.0) H 07/04/17 04:15 INR 1.56 (0.83-1.16) H 07/04/17 04:15 Laboratory Results 07/04/17 04:15 07/04/17 04:15 07/04/17 07/03/17 07/03/17 04:15 04:40 04:40 Calcium 7.9 mg/dL L mg/dL (8.5 - 10.4) Total Bilirubin 0.8 mg/dL mg/dL (0.1 - 1.4) AST 128 IU/L H IU/L (17 - 59) ALT 291 IU/L H IU/L (21 - 72) Alkaline Phosphatase 287 IU/L H IU/L (38 - 126) Total Protein 5.4 g/dL L g/dL (6.3 - 8.2) Albumin 2.7 g/dL L g/dL (3.5 - 5.0) Hepatitis A IgM Ab NEGATIVE Hep Bs Antigen NEGATIVE Hep Bs Antibody Pending Hep Bs Antibody, Quant Pending Hepatitis C Antibody NEGATIVE Urine Legionella Ag 07/01/17 15:20 Calcium Total Bilirubin AST ALT Alkaline Phosphatase Total Protein Albumin Hepatitis A IgM Ab Hep Bs Antigen Hep Bs Antibody Hep Bs Antibody, Quant Hepatitis C Antibody Urine Legionella Ag Negative Chest [id number] by myself. No change in infiltrates. Questionable right- sided pleural effusion - Time Spent With Patient Time Spent With Patient: 25 min of time spent with patient, over 1/2 involved with coordination of care or counseling Physical Exam - Physical Exam General Appearance: WD/WN, alert EENT: PERRL/EOMI, normal ENT inspection Neck: non-tender, full range of motion, supple, normal inspection Respiratory: crackles, No respiratory distress, No wheezing Cardiac/Chest: normal peripheral pulses, regular rate, rhythm Peripheral Pulses: 2+: carotid (R), carotid (L), femoral (R), femoral (L), dorsalis-pedis (R), dorsalis-pedis (L) Abdomen: normal bowel sounds, non-tender, soft Male Genitalia: deferred Rectal: deferred Extremities: normal range of motion, non-tender, normal inspection, normal capillary refill Neuro/Psych: no motor/sensory deficits, alert, normal mood/affect, oriented x 3 ICD10 Worksheet Patient Problems: Problems Problem Status Onset Right lower lobe pneumonia Acute Severe sepsis Acute
[2017-07-04] MEDS ORDERED: AZITHROMYCIN 250 MG TAB PO SCH (09:00)
[2017-07-04] MEDS: ESCITALOPRAM OXALATE 10 MG TAB PO SCH (09:40)
[2017-07-04] MEDS: lamoTRIgine 100 MG TAB PO SCH (09:41)
[2017-07-04] MEDS: lamoTRIgine 25 MG TAB PO SCH (09:42)
[2017-07-04] MEDS: PATCH REMOVAL 1 EA PATCH TD SCH (09:43)
[2017-07-04] MEDS: traMADol 50 MG TAB PO PRN ×3 (09:44→20:59)
[2017-07-04] MEDS: cefTRIAXone 2 GM in STERILE WATER INJ 20 ML IV SCH (09:51)
--- NOTE | 2017-07-04 10:08 | HOSPPROG ---
Hospitalist Progress Note Assessment/Plan: Severe sepsis secondary to RLL PNA - Presented with leukocytosis, tachycardia, hypoxemia, elevated creatinine and elevated LFT's. WBC's trending down. O2 requirement 15 LPM --> 4 LPM today though had increased O2 requirement overnight during prolonged coughing episode with a lot of sputum production. CT chest on admission showed dramatic blossoming of PNA compared to 06/26 CT. Rpt CXR this am pers reviewed / interp - ?developing effusion. -obtain lateral decub films to assess for pleural effusion - consider thora to r/o empyema though clinically not behaving like empyema -pneumococcal Ag positive -BCx's and sputum Cx ngtd -return to Ceftriaxone therapy, discussed with ID -cont prn nebs, O2, RT support -needs f/u imaging in 4-6 weeks to ensure resolution AHRF - 2/2 above -wean O2 as able -management as above KENNEDI - resolved with IVF's Hyponatremia - resolved with NS Elevated LFT's - likely hypoperfusion in setting of sepsis, U/S reassuring, LFT' s trending down -hepatitis serologies pending -cont to trend Coagulopathy - INR elevated, possibly from sepsis, trending down today -follow Bipolar disorder - mood stable, cont home meds Chronic pain - cont home pain meds DVT PPLX - pharm deferred with INR >2, INR now 1.5, will start Lovenox Full code Dispo - cont inpt, ok to transfer back to med surg status. ADD uncertain. Discussed with Dr. White and ICU care team. Subjective: Pt feels ok, he is quite talkative this am. Had a lot of coughing last night and desatted, requiring 10 LPM. STAT cxr was performed and he was transferred back to SDU. Doing much better this am, on 4 LPM. Denies CP or SOB. No fevers. Objective: Vital Signs Temp Pulse Resp BP Pulse Ox 37 C 92 20 131/76 H 94 07/04/17 08:00 07/04/17 08:00 07/04/17 08:00 07/04/17 08:00 07/04/17 08:00 Microbiology 07/01/17 15:00 - Final Sputum, Expectorated Sputum Culture - Final Laboratory Results 07/04/17 04:15 07/04/17 04:15 07/03/17 07/04/17 07/05/17 05:59 05:59 05:59 Intake Total 5434 1793 Output Total 4000 1100 Balance 1434 693 PT 18.8 SEC (12.0-15.0) H 07/04/17 04:15 INR 1.56 (0.83-1.16) H 07/04/17 04:15 - Physical Exam Constitutional: no apparent distress Eyes: PERRL Ears, Nose, Mouth, Throat: moist mucous membranes Cardiovascular: regular rate and rhythym Respiratory: no respiratory distress, inspiratory crackles Gastrointestinal: normoactive bowel sounds, soft, non-tender abdomen Skin: warm Musculoskeletal: full muscle strength Neurologic: AAOx3 Psychiatric: interacting appropriately ICD10 Worksheet Patient Problems: Problems Problem Status Onset Right lower lobe pneumonia Acute Severe sepsis Acute
--- NOTE | 2017-07-04 10:31 | PCMIDPN ---
Assessment/Plan: Assessment/Plan: * Severe sepsis due to community-acquired pneumonia due to Streptococcus pneumoniae: Clinical presentation and findings consistent with pneumococcal pneumonia which has been confirmed by positive urinary Streptococcus pneumoniae antigen. Patient changed to vancomycin and Zosyn overnight with episode of worsening dyspnea which was associated with paroxysmal coughing. Do not think patient has new process such as healthcare associated pneumonia or aspiration; suspect clinical findings are related to natural history of disease and this a.m. shows clinical improvement. Will therefore resume ceftriaxone and discontinue vancomycin and Zosyn. Agree with plans for decubitus films to assess for right-sided pleural effusion which if present would require thoracentesis to further assess for complex parapneumonic process. 07/04/17 10:27 Subjective: Patient transferred to step-down unit overnight for hypoxia and dyspnea with increased O2 requirements. Now has improved with oxygen at 4 L. Patient describes having paroxysm of cough with sputum production which lasted approximately 90 sec which precipitated increased dyspnea. Continued right- sided pleuritic chest pain is present. Objective: Vital Signs Temp Pulse Resp BP Pulse Ox 37 C 92 20 131/76 H 94 07/04/17 08:00 07/04/17 08:00 07/04/17 08:00 07/04/17 08:00 07/04/17 08:00 Microbiology 07/01/17 15:00 - Final Sputum, Expectorated Sputum Culture - Final Laboratory Results 07/04/17 04:15 07/04/17 04:15 07/03/17 07/04/17 07/05/17 05:59 05:59 05:59 Intake Total 5434 1793 Output Total 4000 1100 Balance 1434 693 Vancomycin/Zosyn # 1 Status post 3 days of ceftriaxone and azithromycin Urine Streptococcus pneumoniae antigen positive Blood cultures x2 no growth and sputum with mixed oral armando Chest x-ray with stable findings and question of right-sided pleural effusion - Physical Exam General Appearance: alert, no apparent distress, other (Significantly more comfortable than at time of initial exam) EENT: No scleral icterus, No thrush, No conjunctival petechiae Respiratory: crackles (Bilateral, right greater than left), other (Mild increase in respiratory effort) Cardiac/Chest: regular rate, rhythm, No systolic murmur Extremities: No pedal edema, No inflammation Abdomen: non-tender, No distended Skin: No embolic lesions ICD10 Worksheet Patient Problems: Problems Problem Status Onset Right lower lobe pneumonia Acute Severe sepsis Acute
[2017-07-04] MEDS: guaiFENesin 600 MG TAB.ER PO SCH ×2 (11:07→20:57)
[2017-07-04] MEDS: ENOXAPARIN 40 MG/0.4 ML SYR SC SCH (11:07)
--- NOTE | 2017-07-04 16:47 | ASMTCMCOM ---
CM Note CM Note Notes: 07/04/2017 Case Management Note Pt transferred from 3N to ICU room 240. Case Management d/c poc: to be determined, d/c needs are unclear at this time. Case Management to follow. Date Signed: 07/04/2017 04:46 PM Electronically Signed By:Genny Grewal RN
[2017-07-04] MEDS ORDERED: Herbals/Supplements -Info Only PO SCH (18:30)
[2017-07-04] MEDS: [UNRECOGNIZED DRUG - OTHER] PO SCH (20:36)
[2017-07-04] MEDS: FIBER SMART PO SCH (20:37)
[2017-07-04] MEDS: OXcarbazepine 300 MG TAB PO SCH (20:58)
[2017-07-04] MEDS: ACETAMINOPHEN 325 MG TAB PO PRN (20:59)
[2017-07-04] MEDS: LIDOCAINE 5% TP SCH (21:02)
[2017-07-04] MEDS: QUEtiapine FUMARATE 100 MG TAB PO SCH (21:02)
[2017-07-04] MEDS: BENEFIBER/NUTRISOURCE FIBER PKT 1 EACH PO SCH (22:19)
[2017-07-05] MEDS: ACETAMINOPHEN 325 MG TAB PO PRN (03:03)
[2017-07-05] MEDS: traMADol 50 MG TAB PO PRN ×2 (03:03→20:18)
[2017-07-05 06:15] LABS: PLATELET COUNT 337 10^3/uL (150-400)
--- NOTE | 2017-07-05 08:44 | SOAPPROG ---
SOAP Progress Note Assessment/Plan: Assessment/plan: * Multilobar pneumonia-clinically improved. -antibiotics per Infectious Disease * Acute respiratory failure secondary to above-markedly improved. Looks and feels better. Oxygen requirements down. -wean FiO2 as tolerated -aggressive pulmonary toilet * Moderate right-sided pleural effusion -consult IR for thoracentesis * Anxiety * History of bipolar Subjective: Looks and feels markedly improved. Oxygen requirements are down. Objective: Vital Signs Temp Pulse Resp BP Pulse Ox 36.6 C 93 20 149/73 H 96 07/05/17 03:04 07/05/17 03:04 07/05/17 03:04 07/05/17 03:04 07/05/17 03:04 Laboratory Results 07/05/17 06:00 07/05/17 06:00 07/04/17 07/05/17 07/06/17 05:59 05:59 05:59 Intake Total 1793 2400 Output Total 1100 2700 Balance 693 -300 PT 18.8 SEC (12.0-15.0) H 07/04/17 04:15 INR 1.56 (0.83-1.16) H 07/04/17 04:15 - Time Spent With Patient Time Spent With Patient: 25 min of time spent with patient, over 1/2 involved with coordination of care or counseling Physical Exam - Physical Exam General Appearance: alert, no apparent distress EENT: PERRL/EOMI, normal ENT inspection Neck: non-tender, full range of motion, supple, normal inspection Respiratory: crackles (Right base), No respiratory distress, No wheezing Cardiac/Chest: normal peripheral pulses, regular rate, rhythm Peripheral Pulses: 2+: carotid (R), carotid (L), femoral (R), femoral (L), dorsalis-pedis (R), dorsalis-pedis (L) Abdomen: normal bowel sounds, non-tender, soft Male Genitalia: deferred Rectal: deferred Skin: normal color, warm/dry Extremities: normal range of motion, non-tender, normal inspection, normal capillary refill Neuro/Psych: no motor/sensory deficits, alert, normal mood/affect, oriented x 3 ICD10 Worksheet Patient Problems: Problems Problem Status Onset Right lower lobe pneumonia Acute Severe sepsis Acute
[2017-07-05] MEDS: ENOXAPARIN 40 MG/0.4 ML SYR SC SCH (09:00)
[2017-07-05] MEDS: HYDROCODONE/APAP 5/325 TAB PO PRN ×4 (09:04→23:43)
[2017-07-05] MEDS: guaiFENesin 600 MG TAB.ER PO SCH ×2 (09:04→20:23)
[2017-07-05] MEDS: lamoTRIgine 100 MG TAB PO SCH (09:06)
[2017-07-05] MEDS: ESCITALOPRAM OXALATE 10 MG TAB PO SCH (09:06)
[2017-07-05] MEDS: hydrOXYzine HCL 25 MG TAB PO SCH ×3 (09:08→20:23)
[2017-07-05] MEDS: lamoTRIgine 25 MG TAB PO SCH (09:09)
[2017-07-05] MEDS: BENEFIBER/NUTRISOURCE FIBER PKT 1 EACH PO SCH ×3 (09:10→20:24)
[2017-07-05] MEDS: FIBER SMART PO SCH ×3 (09:11→20:25)
[2017-07-05] MEDS: PATCH REMOVAL 1 EA PATCH TD SCH (09:13)
[2017-07-05] MEDS: cefTRIAXone 2 GM in STERILE WATER INJ 20 ML IV SCH (09:14)
--- NOTE | 2017-07-05 09:15 | HOSPPROG ---
Hospitalist Progress Note Assessment/Plan: Severe sepsis secondary to RLL PNA - Presented with leukocytosis, tachycardia, hypoxemia, elevated creatinine and elevated LFT's. WBC's trending down. O2 requirement 15 LPM --> [address] chest on admission showed dramatic blossoming of PNA compared to 06/26 CT. Rpt CXR yest with free flowing effusion. -thoracentesis today to r/o empyema, discussed with pulm -pneumococcal Ag positive -BCx's and sputum Cx ngtd -cont Ceftriaxone therapy -cont prn nebs, O2, RT support -needs f/u imaging in 4-6 weeks to ensure resolution AHRF - 2/2 above -wean O2 as able -management as above KENNEDI - resolved with IVF's Hyponatremia - resolved with NS Elevated LFT's - likely hypoperfusion in setting of sepsis, U/S reassuring, LFT' s trending down -hepatitis serologies neg -cont to trend Coagulopathy - INR elevated, suspect 2/2 sepsis, trending down Bipolar disorder - mood stable, cont home meds Chronic pain - cont home pain meds DVT PPLX - Lovenox Full code Dispo - cont inpt. ADD uncertain. Subjective: Pt feeling better. Less coughing and less sputum production. Still a bit SOB with activity. Denies CP. No fevers. Taking adequate po. Objective: Vital Signs Temp Pulse Resp BP Pulse Ox 36.3 C 74 18 133/80 H 99 07/05/17 08:00 07/05/17 08:00 07/05/17 08:00 07/05/17 08:00 07/05/17 08:00 Laboratory Results 07/05/17 06:00 07/05/17 06:00 07/04/17 07/05/17 07/06/17 05:59 05:59 05:59 Intake Total 1793 2400 Output Total 1100 2700 Balance 693 -300 PT 18.8 SEC (12.0-15.0) H 07/04/17 04:15 INR 1.56 (0.83-1.16) H 07/04/17 04:15 - Physical Exam Constitutional: no apparent distress Eyes: PERRL Ears, Nose, Mouth, Throat: moist mucous membranes Cardiovascular: regular rate and rhythym Respiratory: no respiratory distress, inspiratory crackles Gastrointestinal: normoactive bowel sounds, soft, non-tender abdomen Skin: warm Musculoskeletal: full muscle strength Neurologic: AAOx3 Psychiatric: interacting appropriately ICD10 Worksheet Patient Problems: Problems Problem Status Onset Right lower lobe pneumonia Acute Severe sepsis Acute
--- NOTE | 2017-07-05 11:15 | PCMIDPN ---
Assessment/Plan: Assessment/Plan: * Severe sepsis due to community-acquired pneumonia due to Streptococcus pneumoniae: Clinical presentation and findings consistent with pneumococcal pneumonia which has been confirmed by positive urinary Streptococcus pneumoniae antigen. Continued clinical improvement with antibiotic therapy. Plans for thoracentesis today given presence of parapneumonic pleural effusion. Continue ceftriaxone. * Increased LFTs: Improving with time. Negative hepatitis serologies. Likely associated with right lower lobe pneumonia and sympathetic inflammatory change versus due to hypotension associated with sepsis. 07/05/17 11:12 07/05/17 11:14 Subjective: Patient feels significantly improved. Sitting up in chair. Objective: Vital Signs Temp Pulse Resp BP Pulse Ox 36.3 C 74 18 133/80 H 99 07/05/17 08:00 07/05/17 08:00 07/05/17 08:00 07/05/17 08:00 07/05/17 08:00 Laboratory Results 07/05/17 06:00 07/05/17 06:00 07/04/17 07/05/17 07/06/17 05:59 05:59 05:59 Intake Total 1793 2400 350 Output Total 1100 2700 Balance 693 -300 350 Ceftriaxone # 5 Blood cultures x2 no growth Chest x-ray: free-flowing effusion on right Laboratory Tests 07/05/17 06:00 Total Bilirubin 1.3 D AST 57 ALT 194 H Alkaline Phosphatase 237 H - Physical Exam General Appearance: alert, no apparent distress EENT: No scleral icterus, No thrush Respiratory: crackles (Bilateral, right greater than left), bronchial breath sounds (Right base) Cardiac/Chest: regular rate, rhythm, No systolic murmur Abdomen: non-tender, No distended ICD10 Worksheet Patient Problems: Problems Problem Status Onset Right lower lobe pneumonia Acute Severe sepsis Acute
[2017-07-05] MEDS: [UNRECOGNIZED DRUG - OTHER] PO SCH (16:30)
[2017-07-05] MEDS: QUEtiapine FUMARATE 100 MG TAB PO SCH (20:23)
[2017-07-05] MEDS: OXcarbazepine 300 MG TAB PO SCH (20:23)
[2017-07-05] MEDS: LIDOCAINE 5% TP SCH (20:24)
[2017-07-06] MEDS: HYDROCODONE/APAP 5/325 TAB PO PRN ×3 (04:49→21:23)
[2017-07-06] MEDS ORDERED: CALCIUM CARBONATE 500 MG CHEWABLE TAB PO PRN (05:58)
[2017-07-06 06:01] LABS: PLATELET COUNT 461 10^3/uL (150-400)
[2017-07-06] MEDS: BENEFIBER/NUTRISOURCE FIBER PKT 1 EACH PO SCH ×2 (09:37→19:43)
[2017-07-06] MEDS: lamoTRIgine 25 MG TAB PO SCH (09:37)
[2017-07-06] MEDS: traMADol 50 MG TAB PO PRN ×2 (09:38→21:18)
[2017-07-06] MEDS: FIBER SMART PO SCH ×3 (09:39→19:40)
[2017-07-06] MEDS: hydrOXYzine HCL 25 MG TAB PO SCH ×3 (09:40→21:10)
[2017-07-06] MEDS: lamoTRIgine 100 MG TAB PO SCH (09:40)
[2017-07-06] MEDS: ESCITALOPRAM OXALATE 10 MG TAB PO SCH (09:40)
[2017-07-06] MEDS: KETOROLAC 30 MG/1 ML SDV IVP PRN ×2 (09:47→16:40)
[2017-07-06] MEDS: guaiFENesin 600 MG TAB.ER PO SCH ×2 (09:47→21:09)
[2017-07-06] MEDS: PATCH REMOVAL 1 EA PATCH TD SCH (10:04)
[2017-07-06] MEDS: ENOXAPARIN 40 MG/0.4 ML SYR SC SCH (10:06)
--- NOTE | 2017-07-06 10:09 | HOSPPROG ---
Hospitalist Progress Note Assessment/Plan: #Strep pneumo CAP with parapneumonic effusion -spoke with IR, not enough fluid to tap. Cont IV CTX #Chest pain: trial heating pad, Toradol #Severe sepsis: resolved. Due to PNA #Leukocytosis: nearly resolved #Transaminitis: from hypotension. Trending down #Acute hypoxic resp failure: due to #1 #KENNEDI: resolved with IVFs #Hypovolemic hyponatremia: resolved #Bipolar d/o: home meds #Chronic pain: home meds #Deconditioning: encourage ambulation #DVT ppx: Lovenox #Disp: cont inpatient admission for IV abx Subjective: pain in right chest worse with cough or laughing Objective: Vital Signs Temp Pulse Resp BP Pulse Ox 36.8 C 73 16 129/82 H 95 07/06/17 08:00 07/06/17 08:00 07/06/17 08:00 07/06/17 08:00 07/06/17 08:00 Laboratory Results 07/06/17 05:18 07/06/17 05:18 07/05/17 07/06/17 07/07/17 05:59 05:59 05:59 Intake Total 2400 900 Output Total 2700 800 750 Balance -300 100 -750 PT 18.8 SEC (12.0-15.0) H 07/04/17 04:15 INR 1.56 (0.83-1.16) H 07/04/17 04:15 - Time Spent With Patient Time Spent with Patient: greater than 35 minutes Time Spent with Patient: Greater than 35 minutes spent on this patients care, greater than 50% of time spent counseling, educating, and coordinating care regarding the above mentioned plan. - Physical Exam Constitutional: other (pale, diaphoretic) Eyes: PERRL Ears, Nose, Mouth, Throat: moist mucous membranes Cardiovascular: regular rate and rhythym, other (TTP along right chest wall) Respiratory: other (decreased BS right base) Gastrointestinal: normoactive bowel sounds Genitourinary: no bladder fullness Skin: warm Musculoskeletal: full muscle strength Neurologic: AAOx3, CN II-XII Intact ICD10 Worksheet Patient Problems: Problems Problem Status Onset Right lower lobe pneumonia Acute Severe sepsis Acute
[2017-07-06] MEDS: cefTRIAXone 2 GM in STERILE WATER INJ 20 ML IV SCH (10:16)
--- NOTE | 2017-07-06 11:52 | ASMTCMCOM ---
CM Note CM Note Notes: Patient's clinical picture improving, and he will likely discharge soon. Discharge plan remains home with ; CM available if needs arise. Date Signed: 07/06/2017 11:51 AM Electronically Signed By:Tierra Napoles RN
--- NOTE | 2017-07-06 13:42 | PCMIDPN ---
Assessment/Plan: Assessment: Right lower and right middle lobe pneumonia. Pneumococcal pneumonia by urine streptococcal antigen. Patient is clearly clinically improved. He maintains on ceftriaxone. Expect that he will transition over to oral Levaquin 750 mg daily to complete a 14 day total course upon discharge. Plan: 1. Continue both ceftriaxone. 2. Continue to wean O2 needs. Likely discharge home with some O2 supplementation given [place] [address] 3. Anticipate transition over to oral Levaquin [address]. Delgado. Subjective: Patient is doing well. He is able to move around the room without getting short of breath. He continues to require 2-3 L of O2 supplementation at rest. This is an improvement from last week. No fevers or chills although he did have night sweats last night. Tolerating ceftriaxone without issue. Objective: Ceftriaxone # 6 Vital Signs Temp Pulse Resp BP Pulse Ox 36.8 C 73 16 129/82 H 95 07/06/17 08:00 07/06/17 08:00 07/06/17 08:00 07/06/17 08:00 07/06/17 08:00 Laboratory Results 07/06/17 05:18 07/06/17 05:18 07/05/17 07/06/17 07/07/17 05:59 05:59 05:59 Intake Total 2400 900 Output Total 2700 800 750 Balance -300 100 -750 - Physical Exam General Appearance: WD/WN, alert, no apparent distress, non-toxic Respiratory: lungs clear, normal breath sounds, No respiratory distress, No crackles Cardiac/Chest: regular rate, rhythm, No tachycardia Extremities: non-tender, normal inspection Skin: normal color, warm/dry, No rash Neuro/Psych: alert, normal mood/affect, oriented x 3 ICD10 Worksheet Patient Problems: Problems Problem Status Onset Right lower lobe pneumonia Acute Severe sepsis Acute
[2017-07-06] MEDS: [UNRECOGNIZED DRUG - OTHER] PO SCH (19:41)
[2017-07-06] MEDS: OXcarbazepine 300 MG TAB PO SCH (21:11)
[2017-07-06] MEDS: QUEtiapine FUMARATE 100 MG TAB PO SCH (21:12)
[2017-07-06] MEDS: DIAZEPAM 5 MG TAB PO PRN (21:24)
[2017-07-06] MEDS ORDERED: LIDOCAINE 4%/MENTHOL 1% PATCH TD SCH (22:15)
[2017-07-06] MEDS: LIDOCAINE 5% TP SCH (22:34)
[2017-07-07] MEDS: KETOROLAC 30 MG/1 ML SDV IVP PRN (02:43)
[2017-07-07] MEDS: HYDROCODONE/APAP 5/325 TAB PO PRN ×3 (02:44→15:59)
[2017-07-07] MEDS ORDERED: PATCH REMOVAL 1 EA PATCH TD SCH (09:00)
--- NOTE | 2017-07-07 09:07 | PCMIDPN ---
Assessment/Plan: Assessment/Plan: 1. b/l pneumonia/CAP secondary to Pneumococcus - blood cx ngtd -f/u cxr noted- b/l changes = usg with mild pleural effusion - currenty on ceftraixone - transition to oral levquin when ready for discharge as outlined in Dr. Lyles' s noted form 07/06/17 -side effects of levquin reviewed -care coordinated ferny Rn meds ceftraixone 2g daily Subjective: afebrile. down to 3L o2. On RA drops to 88 after sometime. not tachypnea. cristela sob. less cough. denies abd pain or diarrhea. Objective: Vital Signs Temp Pulse Resp BP Pulse Ox 36.9 C 83 16 126/79 H 96 07/07/17 08:00 07/07/17 08:00 07/07/17 08:00 07/07/17 08:00 07/07/17 08:00 Microbiology 07/01/17 13:18 Blood Culture - Final Blood Laboratory Results 07/07/17 06:04 07/06/17 05:18 07/06/17 07/07/17 07/08/17 05:59 05:59 05:59 Intake Total 900 Output Total 800 750 Balance 100 -750 - Physical Exam General Appearance: alert Respiratory: coarse breath sounds Cardiac/Chest: regular rate, rhythm Extremities: No swelling Abdomen: normal bowel sounds, non-tender, soft, No distended Skin: No erythema ICD10 Worksheet Patient Problems: Problems Problem Status Onset Right lower lobe pneumonia Acute Severe sepsis Acute
--- NOTE | 2017-07-07 09:20 | PDHOMEO2F ---
Home Oxygen Face to Face Home Orders: I certify that a physician or a nurse practitioner or physician's automotive service assistant has had a [id number] encounter with this patient on the date of this order due to the diagnosis listed, which relates to the primary reason the patient requires home oxygen. Alternative treatments have been tried, or considered, and deemed ineffective. It is anticipated that supplemental oxygen will result in improvement with treatment. Home oxygen qualifying diagnosis: pneumonia Home oxygen secondary diagnosis: acute hypoxic resp failure SpO2 on room air (%): 85 Frequency of home oxygen needed: with activity Home oxygen liters per minute: 2 Home oxygen delivery device: nasal cannula Concentrator: Yes E-tanks for mobility and back up: Yes If ordering portable O2, is the patient mobile in the home?: Yes I certify that, based on these findings, the home oxygen is medically necessary for this patient for the following length of time. Length of time home oxygen needed: 1 month
[2017-07-07] MEDS: PATCH REMOVAL 1 EA PATCH TD SCH (10:04)
[2017-07-07] MEDS: cefTRIAXone 2 GM in STERILE WATER INJ 20 ML IV SCH (10:33)
[2017-07-07] MEDS: DIAZEPAM 5 MG TAB PO PRN (10:41)
[2017-07-07] MEDS: guaiFENesin 600 MG TAB.ER PO SCH (10:42)
[2017-07-07] MEDS: ESCITALOPRAM OXALATE 10 MG TAB PO SCH (10:42)
[2017-07-07] MEDS: lamoTRIgine 100 MG TAB PO SCH (10:43)
[2017-07-07] MEDS: lamoTRIgine 25 MG TAB PO SCH (10:44)
[2017-07-07] MEDS: hydrOXYzine HCL 25 MG TAB PO SCH ×2 (10:45→15:59)
[2017-07-07] MEDS: ENOXAPARIN 40 MG/0.4 ML SYR SC SCH (10:47)
[2017-07-07] MEDS: BENEFIBER/NUTRISOURCE FIBER PKT 1 EACH PO SCH (10:47)
[2017-07-07] MEDS: FIBER SMART PO SCH ×2 (10:48→16:01)
[2017-07-07] MEDS: traMADol 50 MG TAB PO PRN (10:56)
--- NOTE | 2017-07-07 13:25 | PDHOMEO2F ---
Home Oxygen Face to Face Home Orders: I certify that a physician or a nurse practitioner or physician's pest controller assistant has had a [id number] encounter with this patient on the date of this order due to the diagnosis listed, which relates to the primary reason the patient requires home oxygen. Alternative treatments have been tried, or considered, and deemed ineffective. It is anticipated that supplemental oxygen will result in improvement with treatment. Home oxygen qualifying diagnosis: pnemonia Home oxygen secondary diagnosis: hypoxia SpO2 on room air (%): 85 Frequency of home oxygen needed: with activity Home oxygen liters per minute: 2 Home oxygen delivery device: nasal cannula Concentrator: Yes E-tanks for mobility and back up: Yes If ordering portable O2, is the patient mobile in the home?: Yes I certify that, based on these findings, the home oxygen is medically necessary for this patient for the following length of time. Length of time home oxygen needed: 1 week Home Oxygen Comment: lives at [address]
--- NOTE | 2017-07-07 14:05 | GDS ---
[f rep st] DISCHARGE SUMMARY DISCHARGE DIAGNOSES: 1. Right lower/middle lobe pneumococcal pneumonia. 2. Acute hypoxic respiratory failure. 3. Atypical chest pain. 4. Severe sepsis, 5 leukocytosis 6. Transaminitis, 7. acute kidney injury, 8. hypovolemic hyponatremia, 9.bipolar disorder, 10. chronic pain. HISTORY OF PRESENT ILLNESS: A 47-year-old male with bipolar disorder, chronic pain, who presented to the ED by his PCP after CT showed pneumonia. Patient reported a week's worth of feeling poorly and weak. He had a productive cough with black-brown sputum. He had some mild hemoptysis with chills and sweats. No fevers. HOSPITAL COURSE BY PROBLEM: 1. Severe sepsis: due to pneumococcal PNA. He had normal lactate. Blood cultures remain negative. Was treated with IV ceftriaxone and transitioned to Levaquin for a total 14 days. 2. Right middle/lower lobe pneumococcal pneumonia with parapneumonic effusion: not enough fluid to tap and improved on abx. 14 days abx as stated above. 3. Acute hypoxic respiratory failure: Secondary to pneumonia. He will be discharged on oxygen. Does live at [address]. 4. Pleuritic chest pain: Heating pad, Advil. 5. Leukocytosis: resolved.. 6. Transaminitis, likely secondary from hypotension with sepsis. 7. Acute kidney injury, resolved with IV fluids. 8. Hypovolemic, hyponatremia: treated with IVFs 8. Bipolar disorder: Resume home medications. 9. Chronic pain: Home medications. 10. Deconditioning. He is not ambulating on his own. DISPOSITION: Patient is stable for discharge home with his . NEW MEDICATIONS: 1. Levaquin 750 mg daily for 7 days. 2. Guaifenesin. FOLLOWUP: Primary care physician. PHYSICAL EXAMINATION: VITAL SIGNS: Today, temperature 36.9, blood pressure 126 /79, heart rate is in the 80s, respirations 16, 96% on 3 L. GENERAL: He is well-appearing today. Appears brighter. HEENT: PERRLA. Moist mucous membranes. CARDIOVASCULAR: Regular rate and rhythm. No murmurs, gallops, or rubs. LUNGS: Clear. Crackles right base and middle lobe. ABDOMEN: Soft, nontender, nondistended. Positive bowel sounds. : No Heart. MUSCULOSKELETAL: 5/5 upper and lower extremity strength. NEUROLOGIC: 2 through 12 intact. PSYCH: Alert and oriented x3. Time spent on discharge: Greater than 35 minutes discussing treatment plan and oxygen with patient and coordinating discharge. /[id number]/MODL [email or web address]
[2017-07-07 16:08] VITALS: BP 136/82
--- NOTE | 2017-07-07 17:16 | ASMTCMCOM ---
CM Note CM Note Notes: Pt medically stable for d/c with support and oral antibiotics. No CM d/c needs identified. Date Signed: 07/07/2017 04:48 PM Electronically Signed By:JULIAN Robison
== END 2017-07-07 16:48 | disposition home or self-care (01) | DRG 871 ==
LOC: EDUNIT# → OBSVTOIN 12:54 → F2N 16:22 → F3N 07-03 15:40 → F2N 07-04 07:53 → F3N 07-05 18:00
PROVIDERS: ADMIT Hospitalist; ATTEND Hospitalist
DX: A40.3 Sepsis due to Streptococcus pneumoniae (principal); R65.20 Severe sepsis without septic shock; J13 Pneumonia due to Streptococcus pneumoniae; J96.01 Acute respiratory failure with hypoxia; N17.9 Acute kidney failure, unspecified; E87.1 Hypo-osmolality and hyponatremia; R07.89 Other chest pain; F31.9 Bipolar disorder, unspecified; E86.1 Hypovolemia; G89.29 Other chronic pain; Z80.1 Family history of malignant neoplasm of trachea, bronchus and lung
CPT/HCPCS: 86709-90; 87449-90; 96374; G0472; J0456; J0696; J1170; J1650; J1885; J2543; J3370; J7613; Q9967

== ENCOUNTER → 2017-12-17 | Outpatient (CLI) | payer OTHER | LOC: FIMAGING 14:27 | PROVIDERS: ATTEND Family Medicine | DX: Z12.2 Encounter for screening for malignant neoplasm of respiratory organs (principal) ==